=== PATIENT | female | born 1995 | race American Indian/Alaskan Native ===

== ENCOUNTER 2020-04-10 11:35 | Emergency (ER) | payer SELFPAY ==
[2020-04-10 11:45] VITALS: BP 129/91
[2020-04-10] MEDS ORDERED: ONDANSETRON 4 MG ODT TAB PO ONE (11:47)
--- NOTE | 2020-04-10 11:50 | Event Note ---
ED Screening Note Date of service: 04/10/20 Time: 11:44 ED Screening Note: 24-year-old female presents to the emergency room for nausea and vomiting as a retractable. This initial assessment/diagnostic orders/clinical plan/treatment(s) is/are subject to change based on patients health status, clinical progression and re- assessment by fellow clinical providers in the ED. Further treatment and workup at subsequent clinical providers discretion. Patient/guardian urged not to elope from the ED as their condition may be serious if not clinically assessed and managed. Initial orders include:
[2020-04-10 12:47] LABS: Basophils % (Auto) 0.4 % (0.0-1.8); Eosinophils % (Auto) 0.1 % (0.0-4.3); Hematocrit 39.5 % (30.3-42.9); Hemoglobin 13.7 gm/dl (10.1-14.3); Lymphocytes # (Auto) 1.7 K/mm3 (1.2-5.4); Lymphocytes % (Auto) 20.4 % (13.4-35.0); Mean Corpuscular HGB Conc 35 % (30-34); Mean Corpuscular Volume 92 fl (79-97); Monocytes # (Auto) 0.2 K/mm3 (0.0-0.8); Monocytes % (Auto) 2.6 % (0.0-7.3); Platelet Count 307 K/mm3 (140-440); Red Cell Distribution Width 12.9 % (13.2-15.2)
[2020-04-10 13:16] LABS: Alanine Aminotransferase 13 units/L (7-56); Albumin 4.9 g/dL (3.9-5); Blood Urea Nitrogen 11 mg/dL (7-17); Calcium 9.7 mg/dL (8.4-10.2); Hemolysis Index 5
[2020-04-10] MEDS ORDERED: KETOROLAC 30 MG/1 ML INJ IV STA (13:22)
[2020-04-10] MEDS ORDERED: HYOSCYAMINE SUBL 0.125 MG TAB SL ONE (13:22)
[2020-04-10] MEDS ORDERED: diphenhydrAMINE 50 MG/ML VIAL IV STA (13:36)
[2020-04-10] MEDS ORDERED: METOCLOPRAMIDE 10 MG/2 ML INJ IV STA (13:36)
[2020-04-10 13:45] LABS: BUN/Creatinine Ratio 18
[2020-04-10] MEDS ORDERED: SODIUM CHLORIDE 0.9% 1000 ML 1,000 ML IV ONE (13:49)
--- NOTE | 2020-04-10 14:11 | Emergency Department Report ---
ED Abdominal Pain HPI - General Chief Complaint: Nausea/Vomiting/Diarrhea Stated Complaint: VOMITING Time Seen by Provider: 04/10/20 11:50 Source: patient Mode of arrival: Wheelchair Limitations: No Limitations - History of Present Illness MD Complaint: abdominal pain -: Sudden Location: epigastric Radiation: epigastric Migration to: periumbilical Severity: severe Severity scale (0 -10): 10 Quality: aching, sharp Consistency: constant Improves With: vomiting Worsens With: eating Context: other (Enjoy night out with friends and had a little bit too much to drink begin to result in pain to the epigastric region associated with several episodes of vomiting) Associated Symptoms: denies: vomiting, diarrhea, constipation, dysuria, hematochezia, melena, hematuria, syncope - Related Data Previous Rx's Medication Instructions Recorded Last Taken Type Hyoscyamine Subl [Levsin Sl 0.125 0.125 mg SL Q6HR PRN #20 tab 04/10/20 Unknown Rx TAB] Ondansetron [Zofran Odt] 4 mg PO Q8HR #20 tab.rapdis 04/10/20 Unknown Rx Allergies Allergy/AdvReac Type Severity Reaction Status Date / Time No Known Allergies Allergy Unverified 04/10/20 11:45 ED Review of Systems ROS: Stated complaint: VOMITING Other details as noted in HPI ED Past Medical Hx - Past Medical History Previous Medical History?: Yes Additional medical history: Anemia - Surgical History Past Surgical History?: No - Social History Smoking Status: Never Smoker Substance Use Type: Alcohol - Medications Home Medications: Home Medications Medication Instructions Recorded Confirmed Last Taken Type Hyoscyamine Subl [Levsin Sl 0.125 0.125 mg SL Q6HR PRN #20 tab 04/10/20 Unknown Rx TAB] Ondansetron [Zofran Odt] 4 mg PO Q8HR #20 tab.rapdis 04/10/20 Unknown Rx ED Physical Exam - General Limitations: No Limitations General appearance: alert, in no apparent distress - Head Head exam: Present: atraumatic, normocephalic - Eye Eye exam: Present: normal appearance - ENT ENT exam: Present: mucous membranes moist - Neck Neck exam: Present: normal inspection - Respiratory Respiratory exam: Present: normal lung sounds bilaterally. Absent: respiratory distress - Cardiovascular Cardiovascular Exam: Present: regular rate, normal rhythm. Absent: systolic murmur, diastolic murmur, rubs, gallop - GI/Abdominal GI/Abdominal exam: Present: soft, tenderness, guarding, normal bowel sounds, other (No Rovsing, no Pappas Dumont, no Yuri sign). Absent: rebound - Extremities Exam Extremities exam: Present: normal inspection, full ROM, normal capillary refill - Back Exam Back exam: Present: normal inspection. Absent: CVA tenderness (R), CVA tenderness (L) - Neurological Exam Neurological exam: Present: alert, oriented X3, CN II-XII intact - Psychiatric Psychiatric exam: Present: normal affect, normal mood - Skin Skin exam: Present: warm, dry, intact, normal color. Absent: rash ED Course Vital Signs 04/10/20 11:42 Temperature 97.9 F Pulse Rate 96 H Respiratory 14 Rate Blood Pressure 129/91 O2 Sat by Pulse 100 Oximetry - Reevaluation(s) Reevaluation #1: 04/10/20 16:45 24-year-old female reports complete resolution of her symptoms following the treatment. She is tolerating oral requesting to go home as her symptoms have resolved ED Medical Decision Making - Lab Data Result diagrams: 04/10/20 12:01 04/10/20 12:01 - Radiology Data Radiology results: [place] [address] Cat Scan Report Signed Patient: OG WHITE MR#: [id number] : 1995 Acct:[id number] Age/Sex: 24 / F ADM Date: 04/10/20 Loc: ED Attending Dr: Ordering Physician: ALBER DEXTER Date of Service: 04/10/20 Procedure(s): CT abdomen pelvis w con Accession Number(s): [id number] cc: ALBER DEXTER CT ABDOMEN AND PELVIS WITH CONTRAST HISTORY: severe abdominal pain COMPARISON: None. TECHNIQUE: Axial CT images were obtained through the abdomen and pelvis after 100 cc of Omnipaque 300 intravenously. Sagittal and coronal reformatted images. All CT scans at this location are performed using CT dose reduction for ALARA by means of automated exposure control. FINDINGS: CT ABDOMEN: Lung Bases: Clear. Liver: No significant abnormality. Biliary: No significant abnormality. Spleen: No significant abnormality. Unenlarged. Pancreas: No significant abnormality. Adrenals: No significant abnormality. Kidneys: No significant abnormality. Lymphatics: No lymphadenopathy. Vasculature: No significant abnormality. Bowel/Peritoneum: No significant abnormality. No free air. No free fluid. Normal appendix. CT PELVIS: : No significant abnormality. The bladder is empty and poorly evaluated but no gross abnormality. Osseous Structures: No significant abnormality. Additional Findings: None IMPRESSION: No significant abnormality. Signer Name: Kelechi Cope Jr, MD Signed: 04/10/2020 3:58 PM Workstation Name: [id number] Transcribed By: TTR Dictated By: KELECHI COPE JR, MD Electronically Authenticated By: KELECHI COPE JR, MD Signed Date/Time: 04/10/201557 DD/ 55 TD/TT: - Medical Decision Making This patient presents with abdominal pain of unclear etiology. A CT scan was performed to evaluate for potential causes of the abdominal pain, however, neither the clinical exam nor the CT has identified an emergent etiology for the abdominal pain. Specifically, given the benign exam, the laboratory studies, and unremarkable CT, I have a very low suspicion for appendicitis, ischemic bowel, bowel perforation, or any other life threatening disease. I have discussed with the patient the level of uncertainty with undifferentiated abdominal pain and clearly explained the need to follow-up as noted on the discharge instructions, or return to the Emergency Department immediately if the pain worsens, develops fever, persistent and uncontrollable vomiting, or for any new symptoms or concerns. Critical care attestation.: If time is entered above; I have spent that time in minutes in the direct care of this critically ill patient, excluding procedure time. ED Disposition Clinical Impression: Abdominal pain, Vomiting Disposition: DC-01 TO HOME OR SELFCARE Is pt being admited?: No Does the pt Need Aspirin: No Condition: Stable Instructions: Vomiting, Adult, Nausea and Vomiting, Adult, Abdominal Pain, Adult, [id number] Prescriptions: Hyoscyamine Subl [Levsin Sl 0.125 TAB] 0.125 mg SL Q6HR PRN #20 tab PRN Reason: abdominal pain Ondansetron [Zofran Odt] 4 mg PO Q8HR #20 tab.rapdis Referrals: PRIMARY [facility] [Primary Care Provider] - 3-5 Days [facility] [Provider Group] - 3-5 Days
[2020-04-10 15:18] LABS: HCG Qualitative,Urine Negative (Negative)
[2020-04-10 15:21] LABS: Amphetamine Screen,Urine Negative; Benzodiazepines Screen,Urine Negative; Cocaine Screen,Urine Negative; Methadone Screen,Urine Negative; Opiate Screen,Urine Negative
[2020-04-10 15:33] LABS: Cannabinoid Screen,Urine Positive
--- NOTE | 2020-04-10 16:02 | Cat Scan Report ---
CT ABDOMEN AND PELVIS WITH CONTRAST HISTORY: severe abdominal pain COMPARISON: None. TECHNIQUE: Axial CT images were obtained through the abdomen and pelvis after 100 cc of Omnipaque 300 intravenously. Sagittal and coronal reformatted images. All CT scans at this location are performed using CT dose reduction for ALARA by means of automated exposure control. FINDINGS: CT ABDOMEN: Lung Bases: Clear. Liver: No significant abnormality. Biliary: No significant abnormality. Spleen: No significant abnormality. Unenlarged. Pancreas: No significant abnormality. Adrenals: No significant abnormality. Kidneys: No significant abnormality. Lymphatics: No lymphadenopathy. Vasculature: No significant abnormality. Bowel/Peritoneum: No significant abnormality. No free air. No free fluid. Normal appendix. CT PELVIS: : No significant abnormality. The bladder is empty and poorly evaluated but no gross abnormality. Osseous Structures: No significant abnormality. Additional Findings: None IMPRESSION: No significant abnormality. Signer Name: Kelechi Cope Jr, MD Signed: 04/10/2020 3:58 PM Workstation Name: [id number]
== END 2020-04-10 17:06 | disposition home or self-care (01) ==
LOC: ED 11:35
DX: R10.13 Epigastric pain (principal); R11.10 Vomiting, unspecified; Z79.899 Other long term (current) drug therapy
CPT/HCPCS: 36415; 74177; 80053; 80307; 81025; 83690; 85025; 96361; 96374; 96375; 99284; J1200; J1885; J2765; J7030; Q9967; Q0162

== ENCOUNTER 2020-04-25 16:05 | Emergency (ER) | payer SELFPAY ==
[2020-04-25 16:33] VITALS: BP 129/76
[2020-04-25] MEDS ORDERED: dexAMETHasone 4 MG/ML VIAL IV ONE (17:58)
[2020-04-25] MEDS ORDERED: SODIUM CHLORIDE 0.9% 1000 ML 1,000 ML IV ONE (17:58)
[2020-04-25] MEDS ORDERED: ONDANSETRON 4 MG/2 ML INJ IV ONE (17:58)
--- NOTE | 2020-04-25 18:05 | Emergency Department Report ---
<THOMAS VERDIN - Last Filed: 04/25/20 19:37> ED ENT HPI - General Chief complaint: Sore Throat Stated complaint: VOMITING SORE THROAT Time Seen by Provider: 04/25/20 17:57 Source: patient Mode of arrival: Ambulatory Limitations: No Limitations - History of Present Illness Initial comments: 24-year-old female complaining of sore throat inability to swallow and eat. states she started vomiting today x2. She denies fever but does complain of fatigue chills patient currently vomiting large amount of liquid vomitus. She denies any past medical history. She is taking [id number] pain reliever with no improvement MD complaint: sore throat, difficulty swallowing -: Gradual, days(s) (2) Location: throat Severity: severe Severity scale (0 -10): 10 Quality: sharp Improves with: none Worsens with: swallowing, eating Associated Symptoms: sore throat. denies: fever, cough, gum swelling, tooth ache, pain with swallowing, tinnitus, hearing loss, discharge from ear, rhinorrhea - Related Data Previous Rx's Medication Instructions Recorded Last Taken Type Hyoscyamine Subl [Levsin Sl 0.125 0.125 mg SL Q6HR PRN #20 tab 04/10/20 Unknown Rx TAB] Ondansetron [Zofran Odt] 4 mg PO Q8HR #20 tab.rapdis 04/10/20 Unknown Rx Allergies Allergy/AdvReac Type Severity Reaction Status Date / Time No Known Allergies Allergy Unverified 04/10/20 11:45 ED Dental HPI - General Chief complaint: Sore Throat Stated complaint: VOMITING SORE THROAT Time Seen by Provider: 04/25/20 17:57 Source: patient Mode of arrival: Ambulatory Limitations: No Limitations - Related Data Previous Rx's Medication Instructions Recorded Last Taken Type Hyoscyamine Subl [Levsin Sl 0.125 0.125 mg SL Q6HR PRN #20 tab 04/10/20 Unknown Rx TAB] Ondansetron [Zofran Odt] 4 mg PO Q8HR #20 tab.rapdis 04/10/20 Unknown Rx Allergies Allergy/AdvReac Type Severity Reaction Status Date / Time No Known Allergies Allergy Unverified 04/10/20 11:45 ED Review of Systems Comment: All other systems reviewed and negative Constitutional: no symptoms reported Eyes: denies: eye pain, eye discharge ENT: throat pain Cardiovascular: denies: chest pain, palpitations, dyspnea on exertion, orthopnea, edema, syncope, paroxysmal nocturnal dyspnea Gastrointestinal: denies: abdominal pain, diarrhea, hematemesis Genitourinary: denies: urgency, dysuria, hematuria ED Past Medical Hx - Past Medical History Previous Medical History?: No Additional medical history: Anemia - Surgical History Past Surgical History?: No - Social History Smoking Status: Current Every Day Smoker - Medications Home Medications: Home Medications Medication Instructions Recorded Confirmed Last Taken Type Hyoscyamine Subl [Levsin Sl 0.125 0.125 mg SL Q6HR PRN #20 tab 04/10/20 Unknown Rx TAB] Ondansetron [Zofran Odt] 4 mg PO Q8HR #20 tab.rapdis 04/10/20 Unknown Rx ED Physical Exam - General Limitations: No Limitations General appearance: alert, other (Appears uncomfortable and weak) - Head Head exam: Present: atraumatic - Eye Eye exam: Present: normal appearance. Absent: conjunctival injection - ENT ENT exam: Present: mucous membranes dry, TM's normal bilaterally, other (No exudate) - Neck Neck exam: Present: normal inspection, lymphadenopathy - Respiratory Respiratory exam: Present: normal lung sounds bilaterally. Absent: respiratory distress - Cardiovascular Cardiovascular Exam: Present: regular rate, normal heart sounds - GI/Abdominal GI/Abdominal exam: Absent: soft, distended, tenderness - Back Exam Back exam: Absent: normal inspection - Neurological Exam Neurological exam: Present: alert, oriented X3 - Psychiatric Psychiatric exam: Present: normal affect - Skin Skin exam: Present: warm, dry, intact ED Course - Reevaluation(s) Reevaluation #1: 04/25/20 19:37 Patient received 1 L of fluid her condition has improved awaiting CT result care endorsed to ALBER Knutson ED Medical Decision Making - Lab Data Result diagrams: 04/25/20 18:13 04/25/20 18:13 ED Disposition Clinical Impression: Peritonsillar abscess Disposition: Z-07 ELOPED Condition: Stable <ALESSANRDO REYES - Last Filed: 04/25/20 20:39> ED Review of Systems ROS: Stated complaint: VOMITING SORE THROAT Other details as noted in HPI ED Course Vital Signs 04/25/20 16:30 Temperature 98.3 F Pulse Rate 86 Respiratory 18 Rate Blood Pressure 129/76 O2 Sat by Pulse 99 Oximetry ED Medical Decision Making - Lab Data Result diagrams: 04/25/20 18:13 04/25/20 18:13 - Medical Decision Making Patient eloped from the ED prior to CT scan completion Critical care attestation.: If time is entered above; I have spent that time in minutes in the direct care of this critically ill patient, excluding procedure time. ED Disposition Is pt being admited?: No
[2020-04-25 18:29] LABS: Basophils % (Auto) 0.2 % (0.0-1.8); Eosinophils # (Auto) 0.1 K/mm3 (0.0-0.4); Eosinophils % (Auto) 0.4 % (0.0-4.3); Hematocrit 39.1 % (30.3-42.9); Hemoglobin 13.3 gm/dl (10.1-14.3); Lymphocytes # (Auto) 1.3 K/mm3 (1.2-5.4); Lymphocytes % (Auto) 9.5 % (13.4-35.0); Mean Corpuscular HGB Conc 34 % (30-34); Mean Corpuscular Volume 93 fl (79-97); Monocytes # (Auto) 0.7 K/mm3 (0.0-0.8); Monocytes % (Auto) 5.2 % (0.0-7.3); Platelet Count 293 K/mm3 (140-440); Red Cell Distribution Width 12.5 % (13.2-15.2)
[2020-04-25 18:47] LABS: Blood Urea Nitrogen 7 mg/dL (7-17); Hemolysis Index 18
[2020-04-25 18:48] LABS: BUN/Creatinine Ratio 12
== END 2020-04-25 20:25 | disposition left against medical advice (07) ==
LOC: ED 16:05
DX: J36 Peritonsillar abscess (principal); D64.9 Anemia, unspecified; F17.200 Nicotine dependence, unspecified, uncomplicated; Z79.899 Other long term (current) drug therapy
CPT/HCPCS: 36415; 80048; 84703; 85025; 96361; 96374; 96375; 99283; J1100; J2405; J7030